=== PATIENT | male | born 1995 | race Two or more races ===

== ENCOUNTER 2017-10-11 16:05 | Emergency (ER) | payer OTHER ==
[~2017-10-11] VITALS: Ht 172.7 cm; Wt 83.9 kg
[2017-10-11 16:24] VITALS: BP 145/83
== END 2017-10-11 17:01 | disposition home or self-care (01) ==
LOC: ER 16:11
DX: L03.116 Cellulitis of left lower limb (principal); J45.909 Unspecified asthma, uncomplicated
CPT/HCPCS: 99283; A4606; Z7610; Z7502

== ENCOUNTER 2022-01-10 22:35 | Emergency (ER) | payer OTHER ==
[~2022-01-10] VITALS: Ht 172.7 cm; Wt 113.4 kg
[2022-01-10 23:47] VITALS: BP 160/99
[2022-01-11] MEDS ORDERED: diphenhydrAMINE HCL 25 MG CAPSULE PO ONE
[2022-01-11] MEDS ORDERED: CEPH500C2 PO (00:03)
[2022-01-11] MEDS ORDERED: CETI-90 PO (00:03)
[2022-01-11] MEDS ORDERED: diphenhydrAMINE HCL 50 MG CAPSULE ONE (01:01)
[2022-01-11] MEDS ORDERED: CEPHALEXIN MONOHYDRATE 500 MG CAPSULE PO ONE ×2 (01:01)
--- NOTE | 2022-01-11 01:11 | NUR ---
Patient discharged to home in stable condition. Written and verbal after care instructions given. Patient verbalizes understanding of instruction.
== END 2022-01-11 01:11 | disposition home or self-care (01) ==
LOC: ER 22:41
DX: S80.862A Insect bite (nonvenomous), left lower leg, initial encounter (principal); L08.9 Local infection of the skin and subcutaneous tissue, unspecified; J45.909 Unspecified asthma, uncomplicated; Z60.2 Problems related to living alone; W57.XXXA Bitten or stung by nonvenomous insect and other nonvenomous arthropods, initial encounter; Y93.89 Activity, other specified; Y92.89 Other specified places as the place of occurrence of the external cause; Y99.8 Other external cause status
CPT/HCPCS: 99283; Q0163